=== PATIENT | male | born 1960 | race Caucasian/White ===

== ENCOUNTER 2017-06-23 08:28 | Inpatient (IN) | payer OTHER ==
[~2017-06-23] VITALS: Ht 185.4 cm; Wt 151.6 kg
[2017-06-23] MEDS ORDERED: CELE1CAP8 PO (12:17)
[2017-06-23] MEDS ORDERED: LOSA25TA PO (12:18)
[2017-06-23] MEDS ORDERED: ESCI10TA PO (12:18)
[2017-06-23] MEDS ORDERED: ATOR20TA15 PO (12:18)
[2017-06-23] MEDS ORDERED: HYDR-3516 PO (12:19)
[2017-06-23] MEDS ORDERED: IBUP800T23 PO (12:20)
[2017-06-30] MEDS: LACTATED RINGER'S 1000 ML INJ 1,000 ML IV SCH ×2 (03:21→10:06)
[2017-06-30] MEDS ORDERED: ceFAZolin 2 GM PREMIX 50 ML IV SCH ×2 (05:30→11:15)
[2017-06-30] MEDS ORDERED: VANCOMYCIN 1000 MG/NS 250 ML (for <70 kg) IV SCH ×2 (05:30)
[2017-06-30] MEDS ORDERED: POVIDONE IODINE 5% (ANTISEPSIS KIT) 4 APPLICATIONS EACH NARE PRN (05:30)
[2017-06-30] MEDS ORDERED: INSULIN HUMAN REGULAR 1,000 UNITS/10 ML VIAL SQ PRN (05:30)
[2017-06-30] MEDS ORDERED: METOPROLOL TARTRATE 25 MG TAB PO PRN (05:30)
[2017-06-30] MEDS ORDERED: CHLORHEXIDINE GLUCONATE 2 % 1 PACK (2 CLOTHS) TOPICAL PRN (05:30)
[2017-06-30] MEDS ORDERED: LACTATED RINGER'S 1000 ML IV PRN (05:30)
[2017-06-30] MEDS ORDERED: CHLORHEXIDINE GLUCONATE 4% SOLN 120 ML BTL TOPICAL SCH (05:30)
[2017-06-30] MEDS ORDERED: SODIUM CHLORID 0.9% 500 ML IV PRN (05:30)
[2017-06-30] MEDS ORDERED: SODIUM CHLORIDE 0.9% IV SCH (06:00)
[2017-06-30] MEDS ORDERED: TRANEXAMIC ACID IV SCH (06:00)
[2017-06-30] MEDS ORDERED: EXPAREL PERI-ARTICULAR INJECTION (TOTAL VOL. 60 ML) P-ARTICULR SCH ×2 (06:00)
[2017-06-30] MEDS ORDERED: OXYC1CAP PO (06:13)
[2017-06-30] MEDS ORDERED: GENTAMICIN SULFATE 80 MG/2 ML VIAL ONE (06:26)
[2017-06-30] MEDS ORDERED: FAMOTIDINE 20 MG/2 ML VIAL ONE (06:38)
[2017-06-30] MEDS ORDERED: ACETAMINOPHEN 1000 MG/100 ML 100 ML IV ONE (06:38)
[2017-06-30] MEDS ORDERED: DEXAMETHASONE SOD PHOS 4 MG/ML VIAL ONE (06:38)
[2017-06-30] MEDS ORDERED: MIDAZOLAM HCL 2 MG/2 ML VIAL ONE (07:34)
[2017-06-30] MEDS ORDERED: fentaNYL CITRATE 250 MCG/5 ML AMP ONE ×2 (07:36→16:52)
[2017-06-30] MEDS ORDERED: TRANEXAMIC ACID INJ 1,000 MG in SODIUM CHLORIDE 0.9% INJ 100 ML IV ONE (09:30)
--- NOTE | 2017-06-30 10:01 | RADRPT ---
EXAM DATE/TIME: 06/30/2017 08:58 [facility] COMPARISON: No previous studies available for comparison. INDICATIONS : Left anterior total hip arthroplasty. MEDICAL HISTORY : None. SURGICAL HISTORY : None. ENCOUNTER: Initial ACUITY: 1 day PAIN SCORE: Non-responsive. LOCATION: Left hip. FINDINGS: 3 spot fluoroscopic images obtained in the operating room during a procedure demonstrates left total hip arthroplasty in place. Components are noncemented. No acute finding is identified. CONCLUSION: Spot fluoroscopic images obtained during left total hip arthroplasty. Andre Laboy MD on June 30, 2017 at 9:59 Board Certified Radiologist. This report was verified electronically.
[2017-06-30] MEDS ORDERED: OXYC-395 PO (10:12)
[2017-06-30] MEDS ORDERED: XARE15TA PO (10:12)
[2017-06-30] MEDS ORDERED: ONDANSETRON HCL 4 MG/2 ML VIAL IVP PRN (10:15)
[2017-06-30] MEDS ORDERED: NALOXONE HCL 0.4 MG/ML AMP IV PRN (10:15)
[2017-06-30] MEDS ORDERED: Post-op Orders (for Pharmacy) MISC XX ONE ×2 (10:15→11:15)
[2017-06-30] MEDS ORDERED: MORPHINE SULFATE 4 MG/ML INJ IV PUSH PRN (10:15)
[2017-06-30] MEDS ORDERED: ACETAMINOPHEN/HYDROcodone 325 MG/10 MG TAB PO PRN (10:15)
[2017-06-30] MEDS ORDERED: SODIUM CHLORIDE 0.9% FLUSH 5 ML FLUSH IVF PRN (10:15)
[2017-06-30] MEDS ORDERED: ACETAMINOPHEN/HYDROcodone 325 MG/7.5 MG TAB PO PRN ×2 (10:15→11:15)
--- NOTE | 2017-06-30 10:18 | PD.OP ---
cc: Jaylon Mascorro MD Operative Report Date of Surgery: Jun 30, 2017 Preoperative Diagnosis: Severe left hip osteoarthritis Postoperative Diagnosis: Procedure: Left total hip arthroplasty by anterior approach Anesthesia: Gen. Surgeon: Jaylon Mascorro Gate Supervisor(s): Pelon Benjamin PA-C The surgical procedure was assisted by my physician paraprofessional education assistant. My P.A. presence was necessary throughout this case for the manipulation and positioning of the surgical extremity. My P.A. was assisting me throughout the duration of this procedure. The skill set of a physician paraprofessional education assistant was medically necessary to complete this procedure. During the surgical case the surgical asst was working at the back table and the physician paraprofessional education assistant was directly assisting me. Operation and Findings: PLAN OF ACTIVITY Weight bear as tolerated. DRAINS: 7-mm DEMETRA drain. IMPLANTS USED DePuy Corail size [14] high offset stem with a size [54] Chapman Gription cup, [54/36] Altrx poly liner, and a [36+8.5] ceramic Biolox ceramic head. DETAILS OF PROCEDURE: This patient has a long history of hip pain. Patient was found to have severe osteoarthritis. The patient had radiographic evidence of joint space narrowing with civm-jy-gfki arthritis and osteophytes around the acetabulum as well as the femoral head. There was also some cystic changes. The patient failed conservative treatment with pain medications, anti-inflammatories, physical therapy, assistive devices including a cane, as well as therapeutic injection of the hip. Patient's hip arthritis was limiting his ability to ambulate and perform activities of daily living. The patient wished to proceed with surgery and informed consent was obtained. Operative site was marked. I discussed both posterior approach and anterior approach with the patient and decision was made for anterior approach. Patient was brought to OR and placed on OR table. IV sedation and general anesthesia was administered by anesthesiologist. Patient positioned on a Ning table and was given IV antibiotics. Time-out procedure was performed. The hip and thigh were prepped with alcohol followed by Hibiclens. The left thigh was draped in the usual sterile fashion. Clean Air Suite was used for this procedure. The procedure began with a 5-inch incision over the anterolateral thigh. Subcutaneous tissue was dissected with Bovie. The fascia over the tensa fasciae latae was incised. Care was taken to avoid injury to the lateral femoral cutaneous nerve. The tensor muscle was retracted laterally. Sartorius was retracted medially. Retractors were now placed. The reflected head of the rectus is now elevated. A capsulotomy was performed over the anterior head capsule. Sutures were placed to help retract the capsule. At this point the femoral head and neck were identified. With soft tissue protected, oscillating saw was used to make a cut through the femoral neck, the femoral head was now removed. At this point attention was turned to preparation of the acetabulum. The labrum was excised. The acetabulum was sequentially reamed up to size [54]. A Chapman cup was now placed. Fluoroscopy was used to aid in identification of appropriate version. Cup was fully impacted and found to have excellent fit. Hole eliminator was now placed. The liner was now impacted into the cup. At this point the hip was externally rotated. A hook was placed around the proximal femur. The capsule was released off the lateral and medial femur. The hip was now extended and adducted. Retractors were placed around the proximal femur to allow for exposure. A box osteotome was used to remove the lateral cortex of the femoral neck. A broach was used to help lateralize the prosthesis. Canal finder was used to create a path down the canal. Next, the canal was sequentially broached up to size [14]. This was found to be an excellent fit. Calcar planer was placed. A high offset neck and standard head was placed, and the hip was reduced. At this point the femoral hip was found to be short and unstable with hip extension. Next a +5 head was placed. The hip was more stable but still dislocated with hip extension and external rotation. A +8.5 head was now placed. Fluoroscopy revealed that the left leg appeared approximately 5 mm longer than the right. However the hip was extremely stable with the hip Rotated 70 and in full extension. The hip was found to have excellent stability with good range of motion. Trial broach was removed. The Corail size 14 high offset stem was opened. Stem was fully impacted into the proximal femur in appropriate version. The femoral 36+8.5 head was placed. The hip was again reduced. Fluoroscopy confirmed excellent alignment of prosthesis. The wound was thoroughly irrigated and capsule was closed with #1 Vicryl. The fascia over the tensor fasciae muscle was closed with #1 Vicryl, subcutaneous tissue was closed with 3-0 Vicryl and the skin was closed with vivek and Dermabond skin closure. The capsule layers, muscle, and subcutaneous tissue were injected with a mixture of saline and bupivicaine. Dressings were applied. The patient was transferred to Recovery Room in stable condition. Jaylon Mascorro MD Jun 30, 2017 10:18
--- NOTE | 2017-06-30 10:20 | PD.ORT.PN ---
Subjective Subjective Remarks Pierre is postop day #0 status post left anterior total hip arthroplasty Objective Vitals Vital Signs Date Time Temp Pulse Resp B/P (MAP) Pulse Ox O2 Delivery O2 Flow Rate FiO2 06/30/17 06:08 98.5 57 18 161/87 (111) 98 I/O 06/29/17 06/29/17 06/29/17 06/30/17 06/30/17 06/30/17 07:00 15:00 23:00 07:00 15:00 23:00 Intake Total 1850 ml Output Total 3400 ml Balance -1550 ml Intake Other 1850 ml Output Estimated Blood Loss 400 ml Other 3000 ml Imaging Last 24 hours Impressions Hip X-Ray 06/30/17 0000 Signed Impressions: Service Date/Time: Friday, June 30, 2017 08:58 - CONCLUSION: Spot fluoroscopic images obtained during left total hip arthroplasty. Andre Laboy MD Objective Remarks Left hip clean dry dressing intact. Mild swelling of the thigh. Drain in place. Assessment & Plan Assessment and Plan Weight-bear as tolerated Lovenox/Xarelto Physical therapy Plan discharge home Monday if comfortable and safe with physical therapy. Follow-up with her 2 weeks-- Dr. Lebron or Jaylon Nova MD Jun 30, 2017 10:20
[2017-06-30] MEDS ORDERED: DO NOT ADM ANY ANTICOAGULANT DRUGS PRN (10:33)
--- NOTE | 2017-06-30 11:18 | PD.OP ---
cc: Jaylon Mascorro MD Operative Report Date of Surgery: Jun 30, 2017 Preoperative Diagnosis: Postoperative Diagnosis: Procedure: ORIF right ankle bimalleolar fracture Anesthesia: Gen. Surgeon: Jaylon Mascorro Salary Manager(s): Pelon Benjamin PA-C The surgical procedure was assisted by my physician pediatric physical therapy assistant. My P.A. presence was necessary throughout this case for the manipulation and positioning of the surgical extremity. My P.A. was assisting me throughout the duration of this procedure. The skill set of a physician pediatric physical therapy assistant was medically necessary to complete this procedure. During the surgical case the surgical garment assembly supervisor was working at the back table and the physician pediatric physical therapy assistant was directly assisting me. Operation and Findings: Patient was seen and evaluated preoperatively and found to have a displaced right bimalleolar ankle fracture. Informed consent was obtained after a detailed discussion of risk and benefits of surgery. The operative site was marked. Patient was brought to the OR, placed on the OR table, and given IV sedation and general endotracheal anesthesia. IV antibiotics were given preoperatively. A timeout procedure was performed. The left leg was prepped with alcohol followed by Hibiclens and draped in the usual sterile fashion. Attention was turned towards the distal fibula. A four-inch incision was made over the distal fibula. The subcutaneous tissue was dissected with Bovie. The fracture site was visualized. The fracture site was cleaned with curets. The fracture was now reduced. The fracture keyed into anatomic alignment. K-wires were used to h old provisional fixation. A lag screw was placed to compress fracture. A Synthes plate was selected. The plate was provisionally held to bone with K-wires. 3.5 cortical screws were used to compress the plate to bone. Multiple screws were placed above and below the fracture. Next attention was turned towards the medial malleolus. Because of patient's diabetes and peripheral last disease, percutaneous technique was utilized. Fracture was now reduced through 2 small incisions. Fracture keyed into anatomic alignment. K wires were used to hold provisional fixation. 2 guidepins for the 4.0 cannulated screws were placed in a retrograde fashion across the fracture. Fluoroscopy was used to confirm guidepin placement. Cannulated drill was placed over the guidepin. 2 appropriate length screws were now placed. Good compression was applied. Fluoroscopy confirmed well aligned fracture with well-placed hardware. Next, attention was turned to the syndesmosis. The syndesmosis was stressed. There was no widening of the syndesmosis with external rotation of the ankle. Incisions were thoroughly irrigated. The subcutaneous tissue was closed with 3- 0 Vicryl and the skin was closed with 3-0 nylon. Sterile dressings were applied. A well molded well-padded splint was applied. The patient was transferred to Recovery in stable condition. Needle and sponge counts were correct. Jaylon Mascorro MD Jun 30, 2017 11:18
[2017-06-30] MEDS ORDERED: *morphine SULFATE 8 MG/ML PERIprocedure ONLY ONE ×2 (11:24→12:46)
--- NOTE | 2017-06-30 11:50 | EKG ---
Date Performed: 06/30/2017 Time Performed: 06:40:23 PTAGE: 56 years EKG: Sinus rhythm NORMAL ECG Compared to prior tracing no significant change PREVIOUS TRACING : 08/27/1996 07.54 DOCTOR: Keyur Jones Interpretating Date/Time 06/30/2017 11:45:19
[2017-06-30] MEDS ORDERED: NEOSTIGMINE 3 MG/3 ML SYR IV ONE (12:00)
[2017-06-30] MEDS ORDERED: ePHEDrine/NS 25 MG/5 ML SYR IV ONE (12:00)
[2017-06-30] MEDS ORDERED: ONDANSETRON HCL 4 MG/2 ML VIAL IV PUSH ONE (12:00)
[2017-06-30] MEDS ORDERED: LACTATED RINGER'S 1000 ML INJ 1,000 ML IV ONE (12:00)
[2017-06-30] MEDS: KETOROLAC TROMETHAMINE 30 MG/ML (IVP) VIAL IV PUSH SCH (12:00)
[2017-06-30] MEDS ORDERED: PROPOFOL 200 MG/20 ML AMP IV ONE (12:00)
--- NOTE | 2017-06-30 12:10 | HHI.FF ---
Face to Face Verification Diagnosis: (1) S/P total hip arthroplasty Physical Therapy Gait training Hip: Total hip, Protocol: Left Left LE Weight Bearing: WB as tolerated Nursing Dressing Changes: Daily dressing change, Coverderm/Primapore (begin adding xeroform POD 10) I have seen patient Pierre Gibson on 06/30/17. My clinical findings support the need for the requested home health care services because: Ltd mobility - disease progression I certify that my clinical findings support that this patient is homebound because: Post-op weakness Pelon Benjamin Jun 30, 2017 12:09
[2017-06-30] MEDS ORDERED: WALKER/ADULT/FO1 MIS (12:11)
--- NOTE | 2017-06-30 12:28 | RADRPT ---
EXAM DATE/TIME: 06/30/2017 11:10 [facility] COMPARISON: No previous studies available for comparison. INDICATIONS : Post op left hip surgery. MEDICAL HISTORY : None. SURGICAL HISTORY : Left total hip. ENCOUNTER: Subsequent ACUITY: 1 day PAIN SCORE: 8/10 LOCATION: Left Hip and pelvis. FINDINGS: AP view of the pelvis and lateral views of the left hip demonstrate no fracture or dislocation. Left total hip arthroplasty hardware is present. Acetabular and femoral components are noncemented. There is a surgical drain in the lateral proximal thigh soft tissues. Skin vivek are present. Clips overl ie the scrotum. There is mild right hip joint osteoarthritis. CONCLUSION: Expected finding following recent left total hip arthroplasty. There is no acute abnormality. Andre Laboy MD on June 30, 2017 at 12:25 Board Certified Radiologist. This report was verified electronically.
[2017-06-30 14:14] VITALS: BP 113/58; PULSE 67; RESP 18; TEMP 97.5; O2SAT 98
[2017-06-30] MEDS: ceFAZolin 2 GM PREMIX 50 ML IV SCH ×2 (14:36→20:27)
[2017-06-30 16:00] VITALS: BP 125/65; PULSE 78; RESP 18; TEMP 95.6; O2SAT 98
[2017-06-30 16:48] VITALS: O2SAT 97
[2017-06-30] MEDS: VANCOMYCIN INJ 1,000 MG in SODIUM CHLOR 0.9% 250 ML INJ 250 ML IV SCH (17:47)
[2017-06-30 20:10] VITALS: BP 176/74; PULSE 83; RESP 18; TEMP 98.1; O2SAT 96
[2017-06-30] MEDS: SODIUM CHLORIDE 0.9% FLUSH 5 ML FLUSH IVF SCH (20:27)
[2017-06-30] MEDS ORDERED: ATORVASTATIN 20 MG TAB PO SCH (21:00)
[2017-07-01] MEDS: KETOROLAC TROMETHAMINE 30 MG/ML (IVP) VIAL IV PUSH SCH
[2017-07-01 00:10] VITALS: BP 129/68; PULSE 74; RESP 18; TEMP 98.7; O2SAT 96
[2017-07-01] MEDS: ceFAZolin 2 GM PREMIX 50 ML IV SCH (03:22)
[2017-07-01] MEDS: VANCOMYCIN INJ 1,000 MG in SODIUM CHLOR 0.9% 250 ML INJ 250 ML IV SCH (05:46)
[2017-07-01 05:50] LABS: HEMATOCRIT 33.7 % (39.0-51.0); REVIEW FLAG FINAL
--- NOTE | 2017-07-01 07:41 | PD.ORT.PN ---
Subjective Subjective Remarks No complaints. Patient states he has been out of bed 3 times. Ready to go home. There is nobody with him at home but he has access to be able to help him that a very close. Objective Vitals Vital Signs Date Time Temp Pulse Resp B/P (MAP) Pulse Ox O2 Delivery O2 Flow Rate FiO2 07/01/17 01:00 18 07/01/17 00:47 Room Air 07/01/17 00:10 98.7 74 18 129/68 (88) 96 06/30/17 21:30 18 06/30/17 20:10 98.1 83 18 176/74 (108) 96 06/30/17 16:48 97 Nasal Cannula 3.00 06/30/17 16:00 95.6 78 18 125/65 (85) 98 06/30/17 14:14 97.5 67 18 113/58 (76) 98 06/30/17 14:00 81 12 129/55 (79) 95 Nasal Cannula 2 06/30/17 13:00 97.8 82 16 133/65 (87) 95 Nasal Cannula 2 06/30/17 12:00 81 13 134/61 (85) 93 Nasal Cannula 4 06/30/17 11:30 82 12 135/61 (85) 93 Nasal Cannula 4 06/30/17 11:15 82 16 131/58 (82) 92 Nasal Cannula 4 06/30/17 11:00 76 15 133/60 (84) 92 Nasal Cannula 4 06/30/17 10:45 80 17 132/64 (86) 94 Nasal Cannula 4 06/30/17 10:33 97.8 84 12 129/63 (85) 93 Simple Mask 7 I/O 06/30/17 06/30/17 06/30/17 07/01/17 07/01/17 07/01/17 07:00 15:00 23:00 07:00 15:00 23:00 Intake Total 1900 ml 540 ml 240 ml Output Total 3460 ml 75 ml 80 ml Balance -1560 ml 465 ml 160 ml Intake Oral 240 ml 240 ml IV Total 50 ml 300 ml Other 1850 ml Output Drainage Total 60 ml 75 ml 80 ml Estimated Blood Loss 400 ml Other 3000 ml # Voids 1 3 # Bowel Movements 0 1 Result Diagram: 07/01/17 0520 Imaging Last 24 hours Impressions Hip X-Ray 06/30/17 0000 Signed Impressions: Service Date/Time: Friday, June 30, 2017 08:58 - CONCLUSION: Spot fluoroscopic images obtained during left total hip arthroplasty. Andre Laboy MD Objective Remarks Dressing dry. Mild swelling. Neuro exam normal. No calf tenderness Assessment & Plan Ortho Post Op Day #: 1 Problem List: Assessment and Plan Osteoarthritis of the left hip. Surgery: Left POPPY, anterior: POD #1 Weight-bear as tolerated Lovenox/Xarelto Physical therapy Plan discharge home today if cleared by physical therapy. Home healthcare. Home physical therapy Follow-up with her 2 weeks-- Dr. Lebron or Juan Pablo Kwok MD Jul 01, 2017 07:41
[2017-07-01 08:00] VITALS: BP 142/73; PULSE 93; RESP 20; TEMP 98.4; O2SAT 94
[2017-07-01] MEDS ORDERED: LOSARTAN 25 MG TAB PO SCH (09:00)
[2017-07-01] MEDS ORDERED: ESCITALOPRAM OXALATE 10 MG TAB PO SCH (09:00)
[2017-07-01] MEDS: SODIUM CHLORIDE 0.9% FLUSH 5 ML FLUSH IVF SCH (09:33)
[2017-07-01 09:37] VITALS: O2SAT 93
[2017-07-01] MEDS ORDERED: ENOXAPARIN SODIUM 40 MG/0.4 ML SYRINGE SQ SCH (10:00)
[2017-07-01 11:15] VITALS: BP 143/65; PULSE 62; RESP 16; TEMP 96.3; O2SAT 94
[2017-07-01] MEDS ORDERED: DOCUSATE SODIUM 100 MG CAP PO SCH (21:00)
== END 2017-07-01 11:50 | disposition home health service (06) | DRG 470 ==
LOC: HSDI 06-30 05:07 → N06B 06-30 14:14
PROVIDERS: ADMIT Orthopaedic Surgery Orthopaedic Trauma; ATTEND Orthopaedic Surgery Orthopaedic Trauma
PROC: 0SRB04A Replacement of Left Hip Joint with Ceramic on Polyethylene Synthetic Substitute, Uncemented, Open Approach (ICD-10-PCS; principal; 2017-06-30 06:45)
DX: M16.12 Unilateral primary osteoarthritis, left hip (principal); Z68.41 Body mass index [BMI] 40.0-44.9, adult; I10 Essential (primary) hypertension; E66.9 Obesity, unspecified; G47.30 Sleep apnea, unspecified; B19.20 Unspecified viral hepatitis C without hepatic coma
CPT/HCPCS: 73501; 73502; 76000; 85014; 85018; 86850; 86900; 86901; 93005; 94150; C1776; C9290; J0131; J0690; J1100; J1580; J1650; J1885; J2250; J2270; J2405; J2710; J3010; J3370; J7050; J7120

== ENCOUNTER → 2017-06-23 | Outpatient (CLI) | payer OTHER ==
[~2017-06-23] MED LIST: ATOR20TA15 PO; CELE1CAP8 PO; ESCI10TA PO; HYDR-3516 PO; IBUP800T23 PO; LOSA25TA PO; OXYC-395 PO; OXYC1CAP PO; WALKER/ADULT/FO1 MIS; XARE15TA PO
== END ==
LOC: CPRE 08:22
PROVIDERS: ATTEND Orthopaedic Surgery Orthopaedic Trauma
DX: Z01.818 Encounter for other preprocedural examination (principal)